=== PATIENT | male | born 1985 | race Caucasian/White ===

== ENCOUNTER 2022-03-03 10:47 | Outpatient (CLI) | payer BC, SELFPAY | END 2022-03-03 10:48 | disposition home or self-care (01) | LOC: AMB 03-17 15:10 | PROVIDERS: PCP Family Medicine; Visit Provider Family Medicine | DX: R41.82 Altered mental status, unspecified (principal); S49.91XA Unspecified injury of right shoulder and upper arm, initial encounter; W18.30XA Fall on same level, unspecified, initial encounter; Y92.003 Bedroom of unspecified non-institutional (private) residence as the place of occurrence of the external cause | CPT/HCPCS: A0425; A0427 ==

== ENCOUNTER 2022-03-03 11:16 | Emergency (ER) | payer BC, SELFPAY ==
[2022-03-03 11:31] VITALS: BP 129/91; PULSE 101; RESP 16; TEMP 36.6; O2SAT 94; BMI 25.9
--- NOTE | 2022-03-03 11:34 | ED.GENADULT ---
HPI - General Adult General Time Seen by Provider: 11:34 Date Seen: 03/03/22 Chief complaint: Syncope/Fainted Stated complaint: Syncope Time Seen by Provider: 03/03/22 11:34 Source: patient and RN notes reviewed Mode of arrival: EMS Limitations: no limitations History of Present Illness HPI narrative: Arnaldo is a 36-year-old male brought in by EMS for presumed episode of syncope at home. He was quite tired and he you put their son down for a nap at 9:00 a.m.. The son is reportedly a poor sleeper and Arnaldo had been up with him since about 530 this morning. He notes extensive stress at work, did cause him a panic attack that lasted longer this morning when talking to his . He has lots of work that is coming up and deadlines in obligations. Russ remembers putting his son the bed, going to lay in his bed and curling up. He felt a big chilled over room and reportedly went to sleep. That is the last thing he remembered this morning. At about 9:40 a.m., his heard a loud thud. She thought maybe it was the dog jumping out of the bed but the dog was in the room with her. Arnaldo then made his way down the stairs, he looked flushed and sweaty, was not walking straight. He was out of it. She was asking him what was wrong and if he was okay and he just kept repeating what white. She then called 911. She did note that she found his phone in the bed later that she knew he was in the bed. He remembers EMS being there and many people being in the house. Events prior to that from when he got out of bed or possibly fell out of bed to making it downstairs where his were are not remembered by him. There was some blood in she did note that he bit the tip of his tongue. He has not been ill prior to this, no fevers chills. He denies any headache, no visual changes, no headache. No neck pain. Has not had any cough or cold symptoms. Really the only thing that has been plaguing him is work stress. EMS did place an IV and reportedly did give him Ativan. He is feeling tired which certainly could be from the Ativan. He has no history of seizure. In review of our records, he was in the ER in 2013 for feeling of twitching in his chest., these were diagnosed as heart palpitations, he had significant early repolarization of his EKG. This seems to be consistent with what were seen his EKG today as well. Sleep deprivation and stress have been significant for him. Related Data Home Medications Medication Instructions Recorded Confirmed No Known Home Medications 03/03/22 03/03/22 Allergies Allergy/AdvReac Type Severity Reaction Status Date / Time cefaclor [From Ceclor] Allergy Unknown Verified 03/03/22 11:40 Review of Systems Status of ROS: Reports: 10 or more systems reviewed and unremarkable except as noted in History and below PFSH PFS Social History Smoking Status: Unknown if ever smoked Do you use any of these nicotine containing products: None How often do you have a drink containing alcohol: 2-3 times a week AUDIT-C Alcohol total score: 3 Non-prescribed substance use: denies use Exam Const: Vital Signs, click to edit/add: Vital Signs - 24 hr 03/03/22 11:31 03/03/22 14:28 03/03/22 14:29 Temperature 97.8 F Pulse Rate [Left P ulse Oximeter] 101 H 105 H Pulse Rate [orthos tatic lying Left P ulse Oximeter] 90 Respiratory Rate 16 18 Blood Pressure [Le ft Upper Arm] 129/91 H 131/92 H Blood Pressure [or thostatic lying Le ft Arm] 129/81 Blood Pressure [or thostatic sitting Left Arm] Blood Pressure [or thostatic standing Left Arm] Pulse Oximetry 94 98 Oxygen Delivery Me thod Room Air Room Air 03/03/22 14:28 03/03/22 14:29 Temperature Pulse Rate [Left P ulse Oximeter] Pulse Rate [orthos tatic lying Left P ulse Oximeter] 105 H 135 H Respiratory Rate Blood Pressure [Le ft Upper Arm] Blood Pressure [or thostatic lying Le ft Arm] Blood Pressure [or thostatic sitting Left Arm] 131/92 H Blood Pressure [or thostatic standing Left Arm] 128/97 H Pulse Oximetry Oxygen Delivery Me thod Documenting provider has reviewed patient's vital signs: yes Common normals: no apparent distress, oriented x3, no limitations, healthy appearing and well nourished General appearance: cooperative, comfortable, well kempt and other (Tired, easily arousable though) Nutritional appearance: thin HENMT: Common normals: normocephalic, head/scalp atraumatic, hearing grossly normal bilaterally, external ears normal, EAC's normal, external nose normal, nasal mucous membranes and turbinates normal, moist oral mucous membranes, dentition normal and gingiva normal Head and scalp: normocephalic and atraumatic Nose: external nose normal and nasal mucous membranes and turbinates normal External ear: external ears normal External auditory canal: EAC's normal Tympanic membrane: unable to visualize TM (Bilateral ceruminosis) Other: On each side of the tongue where it would be juxtaposed to the posterior molars, there is a little ecchymosis, no active bleeding. The tip of his tongue actually has some bite alonso in ecchymosis but no active bleeding at this time. Eye: Common normals: PERRL, EOMs intact bilaterally, conjunctivae normal, no scleral icterus and normal visual narayan by confrontation Conjunctiva: conjunctiva(e) normal Pupil: PERRL Neck & C-Spine: Common normals: full ROM, no lymphadenopathy, supple, no meningeal signs, no JVD and thyroid normal Thyroid: thyroid normal Resp: Common normals: normal respiratory effort, no retractions, no use of accessory muscles and clear to auscultation bilaterally Auscultation: clear to auscultation bilaterally Cardio: Common normals: no JVD, regular rate, regular rhythm, S1 normal heart sound, S2 normal heart sound, no gallops, no clicks, no murmurs and no rub Rate: regular rate Rhythm: regular rhythm Heart sounds: S1 normal and S2 normal GI: Common normals: Normal to inspection, nondistended, normoactive bowel sounds present, soft to palpation, non-tender, no hepatosplenomegaly, no masses and no bruits Palpation: soft and no hepatosplenomegaly Extremity: Common normals: normal to inspection, full ROM, normal capillary refill, no joint enlargement, no clubbing, cyanosis or edema, no calf tenderness and no pedal edema Neuro: [place] Coma Scale: document GCS findings [place] coma scale eye opening: Spontaneous (4) [place] coma scale verbal response: Orientated (5) [place] coma scale motor response: Obey commands (6) [place] coma scale total score: 15 Common normals: oriented x3, CN's II-XII intact bilaterally, moves all extremities, no focal motor deficits and no sensory deficits noted Meningeal signs: no meningeal signs Coordination/balance: [id number] test normal Motor exam: strength 5/5 throughout, no pronator drift, no tremor noted, no asterixis, no fasciculations, muscle tone normal throughout and no movement abnormalities noted Coordination: [id number] test normal Psych: Appearance: well kempt Course Course Hospital Course: Reviewed with patient and his that I do have concerns that this could represent seizure activity. It is possible he could have some abnormal sleep issue developing as well. Regardless, I discussed with them that we would likely be talking to Neurology. Patient at this time is hemodynamically stable. We will look at arrhythmias and cardiac pathology as well. His EKG has diffuse elevation and has historically had this with early repolarization. Have discussed with them that they will likely be here minimum of 3 hours so we can do a couple sets of cardiac enzymes. I will be ordering a noncontrast head CT as well. Consultations Consultation #1: Spoke with Dr. Sutton from [place] [facility]. She agrees that this sounds like a seizure. Given that this is a first-time seizure at this point, no Lodine of anti epileptic medication required. They will follow up with him outpatient for an MRI and EEG. He is not to drive, is to follow standard seizure precautions. If recurrent seizure activity in the interim, is to return for emergent medical evaluation. Time: 15:13 Vital Signs Vital signs: Initial Vital Signs Temperature 97.8 F 03/03/22 11:31 Temperature Source Temporal Artery Scan 03/03/22 11:31 Pulse Rate 101 H 03/03/22 11:31 Pulse Rhythm 03/03/22 11:31 Respiratory Rate 16 03/03/22 11:31 Blood Pressure 129/91 H 03/03/22 11:31 Blood Pressure Mean 103 03/03/22 11:31 Blood Pressure Position Sitting 03/03/22 11:31 Pulse Oximetry 94 03/03/22 11:31 Oxygen Delivery Method 03/03/22 11:31 Vital Signs Temperature 97.8 F 03/03/22 11:31 Pulse Rate 101 H 03/03/22 11:31 Respiratory Rate 16 03/03/22 11:31 Blood Pressure 129/91 H 03/03/22 11:31 Pulse Oximetry 94 03/03/22 11:31 Oxygen Delivery Method 03/03/22 11:31 Temperature 97.8 F 03/03/22 11:31 Pulse Rate 135 H 03/03/22 14:29 Respiratory Rate 18 03/03/22 14:29 Blood Pressure 128/97 H 03/03/22 14:29 Pulse Oximetry 98 03/03/22 14:29 Oxygen Delivery Method 03/03/22 14:29 Medical Decision Making Lab Data Labs: Lab Results 03/03/22 03/03/22 03/03/22 Range/Units 01:54 01:54 01:54 WBC (4.50-11.00) K/uL RBC (4.30-5.90) m/uL Hgb (13.5-17.5) gm/dL Hct (37.0-53.0) % MCV (80-100) fL MCH (26-34) pg MCHC (32-36) gm/dL RDW Coeff of Sherita (11.5-15.5) % Plt Count (140-440) K/uL Neut % (Auto) (42.0-72.0) % Lymph % (Auto) (20-44) % Sandoval % (Auto) (0.0-11.0) % Eos % (Auto) (0.0-7.0) % Baso % (Auto) (0.0-3.0) % Neut # (Auto) (1.7-7.0) K/uL Lymph # (Auto) (0.90-2.90) K/uL Sandoval # (Auto) (0.00-0.90) K/UL Eos # (Auto) (0.00-0.50) K/uL Baso # (Auto) (0.00-0.30) K/uL Abs Immat Gran (auto) (0.00-0.30) K/uL ESR (2-15) mm/hr Sodium 137 (135-149) mmol/L Potassium 4.1 (3.6-5.1) mmol/L Chloride 104 (96-114) mmol/L Carbon Dioxide 27 (20-32) mmol/L BUN 12 (5-24) mg/dL Creatinine 0.9 (0.5-1.5) mg/dL Estimated Creat Clear 122.01 Estimated GFR 114 ml/min Glucose 112 (60-115) mg/dL Lactate 2.2 H (0.5-1.9) mmol/L Calcium 9.1 (8.4-10.6) mg/dL Total Bilirubin 0.3 (0.1-1.5) mg/dL AST 37 H (12-35) U/L ALT 28 (4-50) U/L Alkaline Phosphatase 65 (40-150) U/L C-Reactive Protein < 0.5 L (0.5-1.0) mg/dL NT-Pro-B Natriuret Pep 13 (0-125) PG/mL Total Protein 7.8 (6.0-8.3) g/dL Albumin 4.7 (3.3-5.0) g/dL Ethyl Alcohol < 0.01 L (0.01-0.03) % SARS-CoV-2 (PCR) (Negative) POC Troponin I (0.01-0.04) ng/ml 03/03/22 03/03/22 03/03/22 Range/Units 11:52 11:52 12:35 WBC 17.51 H (4.50-11.00) K/uL RBC 5.29 (4.30-5.90) m/uL Hgb 15.5 (13.5-17.5) gm/dL Hct 44.9 (37.0-53.0) % MCV 85 (80-100) fL MCH 29 (26-34) pg MCHC 35 (32-36) gm/dL RDW Coeff of Sherita 11.9 (11.5-15.5) % Plt Count 298 (140-440) K/uL Neut % (Auto) 84.3 H (42.0-72.0) % Lymph % (Auto) 9.4 L (20-44) % Sandoval % (Auto) 5.0 (0.0-11.0) % Eos % (Auto) 0.6 (0.0-7.0) % Baso % (Auto) 0.1 (0.0-3.0) % Neut # (Auto) 14.80 H (1.7-7.0) K/uL Lymph # (Auto) 1.60 (0.90-2.90) K/uL Sandoval # (Auto) 0.90 (0.00-0.90) K/UL Eos # (Auto) 0.10 (0.00-0.50) K/uL Baso # (Auto) 0.00 (0.00-0.30) K/uL Abs Immat Gran (auto) 0.10 (0.00-0.30) K/uL ESR <2 L (2-15) mm/hr Sodium (135-149) mmol/L Potassium (3.6-5.1) mmol/L Chloride (96-114) mmol/L Carbon Dioxide (20-32) mmol/L BUN (5-24) mg/dL Creatinine (0.5-1.5) mg/dL Estimated Creat Clear Estimated GFR ml/min Glucose (60-115) mg/dL Lactate (0.5-1.9) mmol/L Calcium (8.4-10.6) mg/dL Total Bilirubin (0.1-1.5) mg/dL AST (12-35) U/L ALT (4-50) U/L Alkaline Phosphatase (40-150) U/L C-Reactive Protein (0.5-1.0) mg/dL NT-Pro-B Natriuret Pep (0-125) PG/mL Total Protein (6.0-8.3) g/dL Albumin (3.3-5.0) g/dL Ethyl Alcohol (0.01-0.03) % SARS-CoV-2 (PCR) Negative SARS-CoV-2 (Negative) POC Troponin I (0.01-0.04) ng/ml 03/03/22 03/03/22 Range/Units 12:35 15:35 WBC (4.50-11.00) K/uL RBC (4.30-5.90) m/uL Hgb (13.5-17.5) gm/dL Hct (37.0-53.0) % MCV (80-100) fL MCH (26-34) pg MCHC (32-36) gm/dL RDW Coeff of Sherita (11.5-15.5) % Plt Count (140-440) K/uL Neut % (Auto) (42.0-72.0) % Lymph % (Auto) (20-44) % Sandoval % (Auto) (0.0-11.0) % Eos % (Auto) (0.0-7.0) % Baso % (Auto) (0.0-3.0) % Neut # (Auto) (1.7-7.0) K/uL Lymph # (Auto) (0.90-2.90) K/uL Sandoval # (Auto) (0.00-0.90) K/UL Eos # (Auto) (0.00-0.50) K/uL Baso # (Auto) (0.00-0.30) K/uL Abs Immat Gran (auto) (0.00-0.30) K/uL ESR (2-15) mm/hr Sodium (135-149) mmol/L Potassium (3.6-5.1) mmol/L Chloride (96-114) mmol/L Carbon Dioxide (20-32) mmol/L BUN (5-24) mg/dL Creatinine (0.5-1.5) mg/dL Estimated Creat Clear Estimated GFR ml/min Glucose (60-115) mg/dL Lactate (0.5-1.9) mmol/L Calcium (8.4-10.6) mg/dL Total Bilirubin (0.1-1.5) mg/dL AST (12-35) U/L ALT (4-50) U/L Alkaline Phosphatase (40-150) U/L C-Reactive Protein (0.5-1.0) mg/dL NT-Pro-B Natriuret Pep (0-125) PG/mL Total Protein (6.0-8.3) g/dL Albumin (3.3-5.0) g/dL Ethyl Alcohol (0.01-0.03) % SARS-CoV-2 (PCR) (Negative) POC Troponin I 0.00 L 0.00 L (0.01-0.04) ng/ml Imaging Data CT scan - head: Attestation: I have reviewed the pertinent imaging results. Radiologist's impression: Patient: ARNALDO ARGUETA Facility:?[facility] Patient ID:?[id number] Site Patient ID:?[id number]. Site :?[id number] Study:?CT Head W/O-03/03/2022 12:25:10 PM Ordering Physician:Lilia Paul Final Report: Indication: sycopal episode, ?seizure Technique: CT of the head without contrast. Coronal and sagittal reformats. Bone and soft tissue windows. Comparison: No prior studies available for comparison at this institution. Findings: No acute intracranial hemorrhage or extra-axial collection. No evidence of acute cortical infarction. No mass effect or midline shift. Normal cerebral volume. The ventricles are normal in size, shape and contour. There is normal alas and white matter differentiation. The orbital contents are normal. No calvarial fractures. No lytic or sclerotic osseous lesions within the calvarium or skull base. Scalp and other imaged soft tissue structures are normal. Mastoid air cells are clear. Paranasal sinuses are well aerated. Moderate mucosal thickening in the left maxillary sinus. Mild secretions in the right sphenoid sinus. Leftward deviation of the septum. Impression: No acute intracranial abnormality. Please note that all CT scans at this facility use dose modulation, iterative reconstruction, and/or weight-based dosing when appropriate to reduce radiation dose to as low as reasonably achievable. Dictated by Shyam Calero MD @ 03/03/2022 12:54:08 PM (Electronic Signature) ECG Data Attestation: I personally reviewed and interpreted this ECG as follows: (Sinus rhythm, 90 beats per minute. Has ST segment elevation diffusely in the inferior and the anterior precordial leads V2 through V6. Compared to old EKGs from 2014. Followup EKG timed 1528 showing sinus rhythm, 90 beats per minute, normal EKG. Can still see early repolarization.) Prior ECG tracings: available for review Critical Care Time Critical Care Time Critical Care Time: No Discharge Plan Discharge Clinical Impression: Episode of syncope Patient Disposition: Home, Self-Care Condition: Stable Instructions: Syncope (ED), New-Onset Seizure in Adults (ED) Additional Instructions: Unfortunately, the clinical picture seems to be that this was likely a seizure. This is not definitively confirmed but is highly suspected. Therefore, you are not to drive until further clearance done by Neurology. You should contact [place] [facility], spoke with Dr. Sutton from there, phone number is [phone] to get scheduled for followup. They will likely order a brain MRI and EEG as well as a consultation with you. Should you have any recurrent seizure type activity or concerns for seizure, need to return to the ER for further evaluation and we would consider initiating medication treatment. No swimming or tub baths with about another adults present, seizures can happen while swimming or if in a tub or hot tub causing drowning. Prescriptions: No Action No Known Home Medications Follow Up/Referrals: Mat Cano MD [Staff Physician] - Stand Alone Forms: [employer] Info Instructions
--- NOTE | 2022-03-03 11:51 | CRLHL7_ITS ---
For Patients: As a result of the Century Cures Act, medical imaging exams and procedure reports are released immediately into your electronic medical record. You may view this report before your referring provider. If you have questions, please contact your health care provider. Indication: sycopal episode, ?seizure Technique: CT of the head without contrast. Coronal and sagittal reformats. Bone and soft tissue windows. Comparison: No prior studies available for comparison at this institution. Findings: No acute intracranial hemorrhage or extra-axial collection. No evidence of acute cortical infarction. No mass effect or midline shift. Normal cerebral volume. The ventricles are normal in size, shape and contour. There is normal alas and white matter differentiation. The orbital contents are normal. No calvarial fractures. No lytic or sclerotic osseous lesions within the calvarium or skull base. Scalp and other imaged soft tissue structures are normal. Mastoid air cells are clear. Paranasal sinuses are well aerated. Moderate mucosal thickening in the left maxillary sinus. Mild secretions in the right sphenoid sinus. Leftward deviation of the septum. Impression: No acute intracranial abnormality. Please note that all CT scans at this facility use dose modulation, iterative reconstruction, and/or weight-based dosing when appropriate to reduce radiation dose to as low as reasonably achievable. Dictated by Shyam Calero MD @ 03/03/2022 12:54:08 PM (Electronically Signed)
[2022-03-03 12:46] LABS: Lactate* 2.2 mmol/L (0.5-1.9)
[2022-03-03 12:48] LABS: Basophils Percent Auto 0.1 % (0.0-3.0); Eosinophils Percent Auto 0.6 % (0.0-7.0); Hematocrit 44.9 % (37.0-53.0); Hemoglobin* 15.5 gm/dL (13.5-17.5); Lymphocytes Percent Auto 9.4 % (20-44); Mean Corpuscular HGB Conc 35 gm/dL (32-36); Mean Corpuscular Hemoglobin 29 pg (26-34); Mean Corpuscular Volume 85 fL (80-100); Neutrophils Percent Auto 84.3 % (42.0-72.0); Platelet Count* 298 K/uL (140-440); RDW Coefficient of Variation % 11.9 % (11.5-15.5); Red Blood Count 5.29 m/uL (4.30-5.90); White Blood Count* 17.51 K/uL (4.50-11.00)
[2022-03-03 12:54] LABS: Slide Review Reflex No
[2022-03-03 13:23] LABS: SARS PCR* Negative SARS-CoV-2 (Negative)
[2022-03-03 13:24] LABS: Albumin* 4.7 g/dL (3.3-5.0); Chloride* 104 mmol/L (96-114); Sodium* 137 mmol/L (135-149)
[2022-03-03 13:25] LABS: Potassium* 4.1 mmol/L (3.6-5.1)
[2022-03-03 13:27] LABS: Bilirubin Total* 0.3 mg/dL (0.1-1.5); Carbon Dioxide* 27 mmol/L (20-32); Creatinine* 0.9 mg/dL (0.5-1.5); Est. Creatinine Clearance* 122.01; Estimated Glomerular Filt Rate 114 ml/min
[2022-03-03 13:28] LABS: Alanine Aminotransferase* 28 U/L (4-50); Alkaline Phosphatase* 65 U/L (40-150); Aspartate Amino Transferase* 37 U/L (12-35); Blood Urea Nitrogen* 12 mg/dL (5-24); Calcium* 9.1 mg/dL (8.4-10.6); Glucose* 112 mg/dL (60-115); Total Protein* 7.8 g/dL (6.0-8.3)
[2022-03-03 13:34] LABS: C Reactive Protein* < 0.5 mg/dL (0.5-1.0); Ethanol* < 0.01 % (0.01-0.03)
[2022-03-03 13:35] LABS: Erythrocyte SedimentationRate* <2 mm/hr (2-15)
[2022-03-03 13:36] LABS: NT Pro B Type NatriureticPept* 13 PG/mL (0-125)
[2022-03-03 14:28] VITALS: BP 129/81; BP 131/92; PULSE 105; PULSE 90
[2022-03-03 14:29] VITALS: BP 128/97; BP 131/92; PULSE 105; PULSE 135; RESP 18; O2SAT 98
[2022-03-03] MEDS: 0.9 % SODIUM CHLORIDE 1000 ml 1,000 ML IV (14:48)
--- NOTE | 2022-03-03 14:54 | ED.NURSE ---
paged out Neuro for patient consult.
[2022-03-03 15:00] VITALS: BP 138/84; PULSE 99; RESP 18; O2SAT 98
== END 2022-03-03 16:23 | disposition home or self-care (01) ==
PROVIDERS: Emergency Provider Family Medicine; PCP Family Medicine
DX: R55 Syncope and collapse (principal)
CPT/HCPCS: 36415; 70450; 80053; 82077; 83605; 83880; 84484; 85025; 85651; 86140; 87635; 93005; 99284; 99285; J7030

== ENCOUNTER 2022-03-31 04:08 | Outpatient (CLI) | payer BC, SELFPAY | END 2022-03-31 04:09 | disposition home or self-care (01) | PROVIDERS: PCP Family Medicine; Visit Provider Family Medicine | DX: R56.9 Unspecified convulsions (principal); R41.82 Altered mental status, unspecified | CPT/HCPCS: A0425; A0427 ==

== ENCOUNTER 2022-03-31 04:40 | Emergency (ER) | payer BC, SELFPAY ==
[2022-03-31] VITALS (13 sets, daily range): BP systolic 113–126; BP diastolic 76–92; PULSE 66–92; RESP 14–16; TEMP 36.4; O2SAT 79–99
--- NOTE | 2022-03-31 04:35 | ED.GENADULT ---
HPI - General Adult General Time Seen by Provider: 04:35 Date Seen: 03/31/22 Chief complaint: Seizure Stated complaint: Seizure Source: patient and EMS Mode of arrival: ambulatory History of Present Illness HPI narrative: 37-year-old male brought in by EMS for altered mentation, possible seizure. Per EMS, spouse called EMS when patient had seizure. Patient does not remember much. He has no complaints. Admits to drinking 1 glass of whiskey last night. Thinks he may have had 1 seizure in the past. Otherwise usual state of health. Patient and spouse were in bed, woke up to moaning and patient having full body shaking. Lasted about 2 minutes, patient was confused after that. Last episode lots of stress and poor sleep. Today, patient back from 3 week work trip. Related Data Previous Rx's Medication Instructions Recorded levetiracetam 500 mg tablet 500 mg PO BID #60 tabs 03/31/22 (Keppra) Allergies Allergy/AdvReac Type Severity Reaction Status Date / Time cefaclor [From [facility]] Allergy Unknown Verified 03/03/22 11:40 Review of Systems Status of ROS: Reports: 10 or more systems reviewed and unremarkable except as noted in History and below PFSH PFSH Social History Smoking Status: Light tobacco smoker What tobacco products do you use: cigars Do you use any of these nicotine containing products: None Second hand tobacco smoke exposure: No How often do you have a drink containing alcohol: 2-3 times a week AUDIT-C Alcohol total score: 3 Non-prescribed substance use: denies use service: No Exam Narrative: Exam Narrative: General: Well-developed and well-nourished, no acute distress Head: Atraumatic and normocephalic Eyes: Pupils are equal reactive, extraocular motions intact, conjunctiva clear ENT: External nose and ears are normal, posterior pharynx without erythema or exudate, abrasion on the tip of the tongue Neck: No midline cervical tenderness, full spontaneous range of motion the neck, trachea midline, no adenopathy Heart: Regular rate and rhythm no murmurs or thrills Lungs: Clear to auscultation bilaterally without wheezes or crackles Abdomen: Soft, nontender, nondistended with active bowel sounds Musculoskeletal: No tenderness, deformity, or edema Neurologic: Awake, alert, and oriented x2, no gross focal neurologic deficits, cranial nerves intact as tested Psych: Mood and affect are appropriate Skin: No rashes Const: Vital Signs, click to edit/add: Vital Signs - 24 hr 03/31/22 04:51 03/31/22 05:00 Temperature 97.5 F L Pulse Rate [Left P ulse Oximeter] 88 80 Respiratory Rate 16 14 Blood Pressure [Le ft Upper Arm] 126/92 H 113/80 Pulse Oximetry 95 95 Oxygen Delivery Me thod Room Air Room Air Course Course Hospital Course: Patient seen and examined on EMS arrival, prior records reviewed. Differential diagnosis includes but not limited to ill mass, intracranial hemorrhage, electrolyte disturbance, alcohol withdrawal, medication reaction, drug use, seizure disorder. Patient presents with reported seizure, on initial exam here is little confused and possibly postictal. Abrasion of the tip of the tongue, no other acute findings on exam. Moves all extremities and no focal neurologic deficits. Oriented x2. Labs and head CT ordered. Reevaluation(s) Reevaluation #1: Labs reassuring other than a slightly low bicarb which is expected, AST and ALT are slightly elevated. CT scan personally of demonstrate any acute findings. Will discuss with Neurology. Time: 05:57 Reevaluation #2: Discussed with Dr. Banks, neurology who recommends starting Keppra see department and plan to discharge. Further interview with patient, he no red sleep depravation over the last couple of weeks only has been working in which may be the trigger for his seizure. Time: 06:15 Vital Signs Vital signs: Initial Vital Signs Temperature 97.5 F L 03/31/22 04:51 Temperature Source Temporal Artery Scan 03/31/22 04:51 Pulse Rate 88 03/31/22 04:51 Pulse Rhythm 03/31/22 04:51 Respiratory Rate 16 03/31/22 04:51 Blood Pressure 126/92 H 03/31/22 04:51 Blood Pressure Mean 103 03/31/22 04:51 Blood Pressure Position Semi-Fowlers 03/31/22 04:51 Pulse Oximetry 95 03/31/22 04:51 Oxygen Delivery Method 03/31/22 04:51 Vital Signs Temperature 97.5 F L 03/31/22 04:51 Pulse Rate 88 03/31/22 04:51 Respiratory Rate 16 03/31/22 04:51 Blood Pressure 126/92 H 03/31/22 04:51 Pulse Oximetry 95 03/31/22 04:51 Oxygen Delivery Method 03/31/22 04:51 Temperature 97.5 F L 03/31/22 04:51 Pulse Rate 80 03/31/22 05:00 Respiratory Rate 14 03/31/22 05:00 Blood Pressure 113/80 03/31/22 05:00 Pulse Oximetry 95 03/31/22 05:00 Oxygen Delivery Method 03/31/22 05:00 Medical Decision Making Medical Records Medical records reviewed: Yes I reviewed the patient's medical records Lab Data Lab results reviewed: Yes I reviewed the patient's lab results Labs: Lab Results 03/31/22 03/31/22 03/31/22 Range/Units 04:46 04:46 04:46 WBC 8.97 (4.50-11.00) K/uL RBC 5.20 (4.30-5.90) m/uL Hgb 15.2 (13.5-17.5) gm/dL Hct 45.4 (37.0-53.0) % MCV 87 (80-100) fL MCH 29 (26-34) pg MCHC 34 (32-36) gm/dL RDW Coeff of Sherita 12.4 (11.5-15.5) % Plt Count 314 (140-440) K/uL Neut % (Auto) 42.1 (42.0-72.0) % Lymph % (Auto) 43.0 (20-44) % Imperial % (Auto) 7.5 (0.0-11.0) % Eos % (Auto) 6.4 (0.0-7.0) % Baso % (Auto) 0.6 (0.0-3.0) % Neut # (Auto) 3.78 (1.7-7.0) K/uL Lymph # (Auto) 3.86 H (0.90-2.90) K/uL Imperial # (Auto) 0.70 (0.00-0.90) K/UL Eos # (Auto) 0.57 H (0.00-0.50) K/uL Baso # (Auto) 0.05 (0.00-0.30) K/uL Abs Immat Gran (auto) 0.04 (0.00-0.30) K/uL Sodium 140 (135-149) mmol/L Potassium 4.0 (3.6-5.1) mmol/L Chloride 107 (96-114) mmol/L Carbon Dioxide 17 L (20-32) mmol/L BUN 9 (5-24) mg/dL Creatinine 0.9 (0.5-1.5) mg/dL Estimated GFR 114 ml/min Glucose 129 H (60-115) mg/dL Calcium 9.2 (8.4-10.6) mg/dL Total Bilirubin 0.5 (0.1-1.5) mg/dL Direct Bilirubin 0.3 (0.0-0.5) mg/dL AST 45 H (12-35) U/L ALT 53 H (4-50) U/L Alkaline Phosphatase 96 (40-150) U/L Total Creatine Kinase 181 (54-186) U/L Total Protein 7.8 (6.0-8.3) g/dL Albumin 4.8 (3.3-5.0) g/dL Procalcitonin Cancelled Prolactin Baseline Urine Opiates Screen Negative (Negative) Ur Oxycodone Screen Negative (Negative) Urine Methadone Screen Negative (Negative) Ur Propoxyphene Screen Negative (Negative) Ur Barbiturates Screen Negative (Negative) U Tricyclic Antidepress Negative (Negative) Ur Phencyclidine Scrn Negative (Negative) Ur Amphetamines Screen Negative (Negative) U Methamphetamines Scrn Negative (Negative) U Benzodiazepines Scrn Negative (Negative) Urine Cocaine Screen Negative (Negative) U Marijuana (THC) Screen Negative (Negative) Ur Drug Screen Comment See Note Ethyl Alcohol < 0.01 L (0.01-0.03) % 03/31/22 03/31/22 Range/Units 04:46 04:46 WBC (4.50-11.00) K/uL RBC (4.30-5.90) m/uL Hgb (13.5-17.5) gm/dL Hct (37.0-53.0) % MCV (80-100) fL MCH (26-34) pg MCHC (32-36) gm/dL RDW Coeff of Sherita (11.5-15.5) % Plt Count (140-440) K/uL Neut % (Auto) (42.0-72.0) % Lymph % (Auto) (20-44) % Imperial % (Auto) (0.0-11.0) % Eos % (Auto) (0.0-7.0) % Baso % (Auto) (0.0-3.0) % Neut # (Auto) (1.7-7.0) K/uL Lymph # (Auto) (0.90-2.90) K/uL Imperial # (Auto) (0.00-0.90) K/UL Eos # (Auto) (0.00-0.50) K/uL Baso # (Auto) (0.00-0.30) K/uL Abs Immat Gran (auto) (0.00-0.30) K/uL Sodium (135-149) mmol/L Potassium (3.6-5.1) mmol/L Chloride (96-114) mmol/L Carbon Dioxide (20-32) mmol/L BUN (5-24) mg/dL Creatinine (0.5-1.5) mg/dL Estimated GFR ml/min Glucose (60-115) mg/dL Calcium (8.4-10.6) mg/dL Total Bilirubin (0.1-1.5) mg/dL Direct Bilirubin (0.0-0.5) mg/dL AST (12-35) U/L ALT (4-50) U/L Alkaline Phosphatase (40-150) U/L Total Creatine Kinase Cancelled (54-186) U/L Total Protein (6.0-8.3) g/dL Albumin (3.3-5.0) g/dL Procalcitonin Prolactin Baseline Cancelled Urine Opiates Screen (Negative) Ur Oxycodone Screen (Negative) Urine Methadone Screen (Negative) Ur Propoxyphene Screen (Negative) Ur Barbiturates Screen (Negative) U Tricyclic Antidepress (Negative) Ur Phencyclidine Scrn (Negative) Ur Amphetamines Screen (Negative) U Methamphetamines Scrn (Negative) U Benzodiazepines Scrn (Negative) Urine Cocaine Screen (Negative) U Marijuana (THC) Screen (Negative) Ur Drug Screen Comment Ethyl Alcohol (0.01-0.03) % Discharge Plan Discharge Clinical Impression: New onset seizure Patient Disposition: Home, Self-Care Condition: Stable Instructions: New-Onset Seizure in Adults (ED) Additional Instructions: Start Keppra this evening. Follow-up with neurology as scheduled. Activity Level: Other Activity Detail: No driving, no swimming, working at heights (ladders, etc) and no bike or motorcycle riding until you follow-up with neurology If seizure lasting greater than 5 minutes give diazepam 1 mL either between the teeth and cheeks, or rectally and call 911 Discharge Diet: Regular Prescriptions: New levetiracetam [Keppra] 500 mg tablet 500 mg PO BID Qty: 60 0RF Follow Up/Referrals: Sonam Luna MD [Primary Care Provider] - Stand Alone Forms: [employer] Info Instructions
--- NOTE | 2022-03-31 04:38 | CRLHL7_ITS ---
For Patients: As a result of the Century Cures Act, medical imaging exams and procedure reports are released immediately into your electronic medical record. You may view this report before your referring provider. If you have questions, please contact your health care provider. INDICATION: Altered mental status. TECHNIQUE: Noncontrast axial images. Sagittal coronal reconstructions per. COMPARISON: 03/03/2022. FINDINGS: No abnormal intracranial mass effect or midline shift, or evidence of acute intracranial hemorrhage. No areas of abnormal attenuation are seen within the brain. CSF spaces are age-appropriate. No acute osseous abnormality. Mild mucosal thickening is seen in the left ethmoid and right sphenoid sinuses. Mastoids are clear IMPRESSION: No CT evidence of an acute intracranial abnormality. Please note that all CT scans at this facility use dose modulation, iterative reconstruction, and/or weight-based dosing when appropriate to reduce radiation dose to as low as reasonably achievable. Dictated by Jhonny Luke MD @ 03/31/2022 6:09:17 AM (Electronically Signed)
[2022-03-31 04:54] LABS: Basophils Absolute Auto 0.05 K/uL (0.00-0.30); Basophils Percent Auto 0.6 % (0.0-3.0); Eosinophils Absolute Auto 0.57 K/uL (0.00-0.50); Eosinophils Percent Auto 6.4 % (0.0-7.0); Hematocrit 45.4 % (37.0-53.0); Hemoglobin* 15.2 gm/dL (13.5-17.5); Immature Granulocytes Abs Auto 0.04 K/uL (0.00-0.30); Lymphocytes Absolute Auto 3.86 K/uL (0.90-2.90); Mean Corpuscular HGB Conc 34 gm/dL (32-36); Mean Corpuscular Hemoglobin 29 pg (26-34); Mean Corpuscular Volume 87 fL (80-100); Monocytes Percent Auto 7.5 % (0.0-11.0); Neutrophils Absolute Auto 3.78 K/uL (1.7-7.0); Neutrophils Percent Auto 42.1 % (42.0-72.0); Platelet Count* 314 K/uL (140-440); RDW Coefficient of Variation % 12.4 % (11.5-15.5); White Blood Count* 8.97 K/uL (4.50-11.00)
--- NOTE | 2022-03-31 04:59 | ED.NURSE ---
pt has trauma to tongue after seizure, bleeding has stopped.
[2022-03-31 05:04] LABS: Slide Review Reflex No
[2022-03-31 05:07] LABS: Albumin* 4.8 g/dL (3.3-5.0)
[2022-03-31 05:08] LABS: Chloride* 107 mmol/L (96-114); Sodium* 140 mmol/L (135-149)
[2022-03-31 05:10] LABS: Bilirubin Direct* 0.3 mg/dL (0.0-0.5); Bilirubin Total* 0.5 mg/dL (0.1-1.5); Carbon Dioxide* 17 mmol/L (20-32); Creatinine* 0.9 mg/dL (0.5-1.5); Estimated Glomerular Filt Rate 114 ml/min; Total Protein* 7.8 g/dL (6.0-8.3)
[2022-03-31 05:11] LABS: Alanine Aminotransferase* 53 U/L (4-50); Alkaline Phosphatase* 96 U/L (40-150); Aspartate Amino Transferase* 45 U/L (12-35); Blood Urea Nitrogen* 9 mg/dL (5-24); Calcium* 9.2 mg/dL (8.4-10.6); Creatine Kinase* 181 U/L (54-186); Glucose* 129 mg/dL (60-115)
[2022-03-31 05:12] LABS: Amphetamine Screen Urine Negative (Negative); Barbiturate Screen Urine Negative (Negative); Benzodiazepines Screen Urine Negative (Negative); Cannabinoid Screen Urine Negative (Negative); Cocaine Screen Urine Negative (Negative); Methadone Screen Urine Negative (Negative); Methamphetamines Screen Urine Negative (Negative); Opiate Screen Urine Negative (Negative); Oxycodone Screen Urine Negative (Negative); Phencyclidine Screen Urine Negative (Negative); Tricyclic Antidepressant Urine Negative (Negative)
[2022-03-31 05:13] LABS: Ethanol* < 0.01 % (0.01-0.03)
--- NOTE | 2022-03-31 06:00 | ED.NURSE ---
called. additional information. per , seizure activity woke he up from sleep, seizure was very aggressive lasted about 2-3 minutes. pt [facility]. Pt is started complaining of back pain, between shoulder blades yesterday, would like that checked out.
[2022-04-02 13:26] LABS: Prolactin 43.8 ng/mL (2.1-17.7)
== END 2022-03-31 07:15 | disposition home or self-care (01) ==
PROVIDERS: Emergency Provider Family Medicine; PCP Family Medicine
DX: R56.9 Unspecified convulsions (principal)
CPT/HCPCS: 36415; 70450; 80048; 80076; 80306; 82077; 82550; 84145; 84146; 85025; 96365; 99285; J1953

== ENCOUNTER 2022-04-03 08:45 | Outpatient (RCR) | payer BC, SELFPAY | END 2023-02-13 23:59 | disposition home or self-care (01) | PROVIDERS: PCP Family Medicine; Visit Provider Family Medicine | DX: M25.511 Pain in right shoulder (principal); M25.512 Pain in left shoulder; Z51.89 Encounter for other specified aftercare | CPT/HCPCS: 97110; 97162 ==

== ENCOUNTER 2022-06-20 14:55 | Emergency (ER) | payer BC, SELFPAY ==
[2022-06-20 15:03] VITALS: BP 139/104; PULSE 84; RESP 18; TEMP 36.6; O2SAT 99; BMI 26.8
--- NOTE | 2022-06-20 15:05 | XR_ITS ---
Patient: ELLA ARGUETA Facility:?[facility] Patient ID:?[id number] Site Patient ID:?[id number]. Site :?1985 Study:?XRay-Extremity Right 2 VIEW-06/20/2022 3:30:57 PM Ordering Physician:Scarlett Howe Final Report: INDICATION: Inversion injury. Pain at the base of the 5th metatarsal. TECHNIQUE: Two views of the right foot COMPARISON: None FINDINGS: Bones: A nondisplaced fracture at the base of the 5th metatarsal. Joint spaces: Unremarkable. Soft tissues: Unremarkable. IMPRESSION: Nondisplaced fracture at the base of the 5th metatarsal. Dictated by Greg Pruitt MD @ 06/20/2022 3:57:28 PM Signed by:?Greg Pruitt MD @06/20/2022 3:57:28 PM (Electronic Signature)
--- NOTE | 2022-06-20 15:09 | ED_ITS ---
HPI - Extremity Injury (Lower) General Chief Complaint: Extremity Pain/Injury, Lower Stated Complaint: Foot Injury Time Seen by Provider: 06/20/22 15:05 History of Present Illness HPI Narrative: 37-year-old man presenting to the emergency department with injury to his right foot. He is able to hobble in. Just a little bit ago was in the garage with untied work boots and noting the steel toe, which locked his foot in the boot and just went over hard. He heard a pop and felt pain at the ?lump? on the outside of his foot. No other injuries sustained. Related Data Previous Rx's Medication Instructions Recorded levetiracetam 500 mg tablet 500 mg PO BID #60 tabs 03/31/22 (Keppra) Allergies Allergy/AdvReac Type Severity Reaction Status Date / Time cefaclor [From Ceclor] Allergy Unknown Verified 03/03/22 11:40 Review of Systems Status of ROS: Reports: 6 or more systems reviewed and unremarkable except as noted in History and below PFSH PFSH Social History Smoking Status: Light tobacco smoker What tobacco products do you use: cigars Do you use any of these nicotine containing products: None Second hand tobacco smoke exposure: No How often do you have a drink containing alcohol: 2-3 times a week AUDIT-C Alcohol total score: 3 Non-prescribed substance use: denies use service: No Exam Narrative: Exam Narrative: Pleasant. Uncomfortable appearing. As noted seems to be ambulating with an talgic gait favoring the right. Breathing easily. Skin is warm and dry. Examination of the right lower extremity shows moderate swelling at the base of the 5th metatarsal, tenderness here as well. No malleolar tenderness. No navicular tenderness. Comparison to the left foot is this fibular tendon insertion is certainly more swollen on the right versus the left. Const: Vital Signs, click to edit/add: Vital Signs - 24 hr 06/20/22 15:03 Temperature 97.9 F Pulse Rate [Right Pulse Oximeter] 84 Respiratory Rate 18 Blood Pressure [Ri ght Upper Arm] 139/104 H Pulse Oximetry 99 Oxygen Delivery Me thod Room Air Documenting provider has reviewed patient's vital signs: yes Course Vital Signs Vital signs: Initial Vital Signs Temperature 97.9 F 06/20/22 15:03 Temperature Source Temporal Artery Scan 06/20/22 15:03 Pulse Rate 84 06/20/22 15:03 Respiratory Rate 18 06/20/22 15:03 Blood Pressure 139/104 H 06/20/22 15:03 Blood Pressure Mean 115 06/20/22 15:03 Blood Pressure Position Sitting 06/20/22 15:03 Pulse Oximetry 99 06/20/22 15:03 Oxygen Delivery Method 06/20/22 15:03 Vital Signs Temperature 97.9 F 06/20/22 15:03 Pulse Rate 84 06/20/22 15:03 Respiratory Rate 18 06/20/22 15:03 Blood Pressure 139/104 H 06/20/22 15:03 Pulse Oximetry 99 06/20/22 15:03 Oxygen Delivery Method 06/20/22 15:03 Temperature 97.9 F 06/20/22 15:03 Pulse Rate 84 06/20/22 15:03 Respiratory Rate 18 06/20/22 15:03 Blood Pressure 139/104 H 06/20/22 15:03 Pulse Oximetry 99 06/20/22 15:03 Oxygen Delivery Method 06/20/22 15:03 MDM - Extremity Injury (Lower) MDM Narrative Medical decision making narrative: Given ice pack and Devan wrap. Taken to x-ray. Images pending. I review images and see a transverse nondisplaced fracture through the mid- styloid of the 5th metatarsal. Not quite a Fernandes fracture. Ordered for a Cam boot. Wearing this he is able to bear weight now much more comfortably. Would not seem that he needs crutches. Medical Records Attestation: I reviewed the patient's medical records. Discharge Plan Discharge Clinical Impression: Fracture of fifth metatarsal bone of right foot Patient Disposition: Home, Self-Care Condition: Stable Additional Instructions: A happier holidays to you. :) After the weekend I would call for an appointment in primary care or with Orthopedics at [phone] scheduling around 10-14 days from now for re-jeremy luation. Wear the Cam boot when up in walking about. You do not need crutches unless you are having significantly increased pain with ambulation. Ibuprofen, acetaminophen. I would ice this area with those screw top icing bags -- fill with ice and then water -- a couple of times daily over the next few days. Prescriptions: No Action levetiracetam [Keppra] 500 mg tablet 500 mg PO BID Qty: 60 0RF Follow Up/Referrals: Sonam Luna MD [Primary Care Provider] - Stand Alone Forms: [employer] Info Instructions
== END 2022-06-20 15:58 | disposition home or self-care (01) ==
PROVIDERS: Emergency Provider Family Medicine; PCP Family Medicine
DX: S92.504A Nondisplaced unspecified fracture of right lesser toe(s), initial encounter for closed fracture (principal)
CPT/HCPCS: 73620; 99283

== ENCOUNTER 2024-12-30 14:49 | Emergency (ER) | payer BC, SELFPAY ==
[2024-12-30] VITALS (11 sets, daily range): BP systolic 142–185; BP diastolic 94–112; PULSE 54–69; RESP 8–20; TEMP 36.1; O2SAT 99–100; BMI 27.1
--- OUTSIDE RECORDS SUMMARY | 2024-12-30 14:51 | XMS_ITS | Clinical Summary ---
Author Organization [facility] Address [address] [place] [address] Care Team Providers Care Enrollment Management Coordinator Name Role Phone Elsewhere, Pcp Primary Care Provider Unavailabl e Source Comments Patient records contain information from all sites at [facility]. For routine questions regarding patient records, call [phone] during business hours, M-F 8:00 AM - 5:00 PM Central Time. Record requests for emergency care only can be directed to [phone] at any time.[facility] Allergies Active Allergy Reactions Criticality Noted Date Comments Cefaclor Rash Medium 04/14/2018 WHEN YOUNGER Medications pyridoxine, vitamin B6, (B-6) 100 mg tablet Take 100 mg by mouth daily. 2 Active levETIRAcetam (KEPPRA) 750 mg tablet Take 1 tablet by mouth 2 (two) times a day. 2 Active diazePAM (VALIUM) 5 mg/mL concentrated solution Take 1 mL by mouth as directed. GIVE 1 ML ORAL OR RECTAL IF SEIZURE LASTING OVER 5 MINUTES 2 Active Social History Tobacco Use Types Packs/Day Years Used Date Smoking Tobacco: Never Smokeless Tobacco: Never Nutrition Answer Date Recorded Nutrition: EVOO Fat Source Unknown 09/29 Nutrition: Servings of Fruits/Vegetables per Day Not on file 09/29/2020 Dental Answer Date Recorded Dental: Regular Dentist Unknown 09/30/19 21 Sex and Gender Information Value Date Recorded Sex Assigned at Not on file Legal Sex Male 7:48 PM [employer] Gender Identity Not on file Sexual Orientation Not on file Plan of Treatment Upcoming Encounters Date Type Department Care Team (Latest Contact Info) Description 01/27/2025 9:30 AM CDT Clinical Communication Virtual Review in [place], [place] [address] [place] [address] 01/31/2025 8:40 AM CDT Office Visit Department of Dermatology in [place], [place] [address] [place] [address] Dennise Amaro M.D. [address] [place] [address] Health Maintenance Due Date Last Done Comments HIV Screening 1985 Hepatitis C Screening 1985 COVID-19 Vaccine ( season) 2024 05/06/2023, 04/18/2022, 06/23/2021, Additional history exists Depression Screening (Annual PHQ-2) 07/28/2024 Lipid (Cholesterol) Screening 10/20/2025 10/20/2020 DTaP,Tdap,and Td Vaccines (4 - Td or Tdap) 11/03/2033 11/04/2023, 11/11/2013, 01/25/1999 Hepatitis B Vaccines Completed 09/20/1999, 03/19/1999, 01/25/1999 Influenza Vaccine Completed 06/04/2024, , 04/18/2022, Additional history exists HPV Vaccines Aged Out No longer eligi ble based on patient's age to complete this topic IPV Vaccines Aged Out No longer eligi ble based on patient's age to complete this topic Pneumococcal vaccine (0-49 years) Aged Out No longer eligible based on patient's age to complete this topic Insurance [id number] [place] [id number] [facility] Care Teams Enrollment Management Coordinator Relationship Specialty Start Date End Date Elsewhere, Pcp PCP - General Internal Medicine 02/17/23
--- OUTSIDE RECORDS SUMMARY | 2024-12-30 14:51 | XMS_ITS | Data Portability ---
Author Organization [facility], [facility] Address [address] [place] [address] Assessment No assessment recorded. Plan of Treatment Reminders Order Date Submit Date Provider Last Modified By Organization Details Last Modified Time Details Appointments None record ed. Lab None record ed. Referral None record ed. Procedures None record ed. Surgeries None record ed. Imaging None record ed. Medication Orders None record ed. Patient TargetsNo targets recorded. Patient InstructionsNo instructions recorded. Reason for Referral None Reported. Medical Equipment None Reported. Allergies Allergen ID Allergen Name Allergen Category Reaction Reaction Severity Criticality Documentation Date Start Date Code Code System Note Provider Name and Address Organization Details Recorded Time [id number] Ceclor medicatio n Not available Not available Not available 08/01/2022 5 RxNorm Jordyn hernandez [facility] 3 10:28:54 Medications Name Sig Start Date Stop Date Status Note LastModified by Organization Details LastModified Time vitamin b-6 100 mg tabs active Not Available Not Available Not Available binaxnow cov kit home mayra 08/01 completed Not Available Not Available Not Available levetiracet am 500 mg tablet TAKE 1 TABLET BY MOUTH TWICE DAILY 08/01 completed Not Available Not Available Not Available amoxicillin 875 mg tablet 08/01 completed Not Available Not Available Not Available levetiracet am 750 mg tablet TAKE 1 TABLET BY MOUTH EVERY 12 HOURS active Not Available Not Available No t Available pyridoxine (vitamin B6) 100 mg tablet TAKE 1 TABLET BY MOUTH EVERY DAY 08/01 completed Not Available Not Available Not Available Diazepam Intensol 5 mg/mL oral concentrate GIVE 1 ML ORAL OR RECTAL IF SEIZURE LASTING OVER 5 MINUTES active Not Available Not Available No t Available Valtoco 20 mg/2 spray (10mg/0.1mL x2) nasal spray active Not Available Not Available Not Available BinaxNOW COVID-19 Ag Self Test kit TEST DIRECTED TODAY 08/01 completed Not Available Not Available Not Available Vitals Date Recorded Body height Body mass index (BMI) Body weight Provider Name and Address Organization Details Last Updated DateTime 08/01/2022 180.34 cm 26.4 kg/m2 47705.96 g Jordyn Doll [facility] 08/01/2022 10:28:08 Social History Question Answer Notes LastModified by Organizat ion Details LastModified Time Tobacco Smoking Status Never Smoker Jordyn hernandez [facility] 08/01/2022 10:30:19 What Was The Date Of Your Most Recent Tobacco Screening? 08/01/2022 szinnel Information not available 08/01/2022 Sex: Unknown Functional Status None recorded. Mental Status None recorded. Family History Relationship Description Onset Age of this Age Resolved Age Notes LastModified by Organization Details LastModified Time Father Family history of malignant neoplasm of brain szinnel Not available 2022 10:30:02 Medical History Condition Response Other Y High Blood Pressure N Kidney Stones N Lung Disease N Depression N GERD/Acid Reflux N Sexually Transmitted Infection N Cancer N High Cholesterol N Diabetes N Bleeding Disorder N Heart Disease N Past Encounters Encounter ID Performer Location Encounter Start Date Encounter Closed Date Diagnosis/Indication Diagnosis SNOMED-CT Code Diagnosis ICD10 Code Diagnosis Note [id number] Jesus Connell MD [facility] [address] [place] [address] 08/01/2022 10:21:20 08/05/2022 15:56:18 Counseling for sterilization done [id number] 9103 Z30.09 He has a normal exam and is a good candidate for a single site, no scalpel vasectomy. This is the most minimally invasive but still highly effective technique. We discussed potential complicati ons as well as the need for a post procedure semen analysis. Health Concerns Section Related Observation LastModified by Organization Detai ls LastModified Time None Recorded Concern Status LastModified by Organization Details LastModified Time None Recorded Advance Directives Directive None Recorded Payers Insurance Date Sequence Insurance Name Policy Number Policy Browning Covered Member ID Browning Member ID Guarantor Name 10/14/2022 1 [place] [id number] Arnaldo Hawthorne Jeff [id number] Arnaldo Aguilar Notes Date Note Type Note Provider Name and Address Organization Details Recorded Time 08/01/2022 text/html He's been considering a vasectomy for over a year. They currently use condoms for control. He does not have problems with recurrent scrotal pain. Jesus Connell MD [address] [place] [address],[address] [place] [address], [phone], [facility] 08/01/2022 11:02:23
--- OUTSIDE RECORDS SUMMARY | 2024-12-30 14:51 | XMS_ITS | Clinical Summary ---
Author Organization [facility] Address [address] [place] [address] Care Team Providers Care Butadiene Converter Utility Operator Name Role Phone Sonam Luna MD Primary Care Provider [phone] Allergies Active Allergy Reactions Criticality Noted Date Comments Cefaclor Rash 04/14/2018 Medications Vitamin B-6 100 mg tablet 04/09/2022 Active diazePAM IntensoL 5 mg/mL solution GIVE 1 ML ORAL OR RECTAL IF SEIZURE LASTING OVER 5 MINUTES 03/31/2022 Active diazePAM (Valtoco) 20 mg/2 spray (10mg/0.1mL x2) spry 1 spray (10mg) into each nostril 04/09/2022 Active levETIRAcetam (KEPPRA) 750 mg tabletIndicatio ns:Seizure disorder (HC) Take 1 Tablet (750 mg) by mouth two times daily. 4 Tablet 03/26/2024 Active Active Problems Problem Noted Date Diagnosed Date Seizure disorder 03/06/2023 Syncope and collapse 07/24/2018 Encounters Date Type Department Care Team Description 11/08/2024 Medical Messaging [facility] [address] [place] [address] Sonam Luna MD Neuro + Vaccines from Last 3 Months Immunizations Immunization Administration Dates Next Due COVID-19 vaccine (Pfizer-Bio NTech 30mcg/0.3mL) 12YO+ BIVALENT PF, MDV 04/18/2022 COVID-19 vaccine (Pfizer-Bio NTech 30mcg/0.3mL) PF MDV 06/23/2021,10/09/2020 Hepatitis B (Peds) 09/20/1999,03/19/1999, 999 INFLUENZA, IIV3 PF (AGE >= 6 MO) 06/04/2024 Influenza, IIV3 (Age >=3 years) 05/24/2021 Influenza, IIV4 05/06/2023,,05/17/2019,2017,05/21/2017,09/04/2016 MMR 01/25/1999 Td (Age >=7 Years) 01/25/1999 Tdap 11/04/2023,11/11/2013 Tuberculin (PPD) 01/01/2019 Family History Medical History Relation Name Comments Good Health Daughter Cancer Father Cancer Unknown Stroke Father hemiparesis Lung cancer Maternal Grandmother lung ca ncer Good Health Mother Lung cancer Other cancer (unknow) Good Health Paternal Aunt 1 Good Health Paternal Aunt 2 Lung cancer Paternal Grandfather cancer (unknow) Stroke Paternal Grandfather D 87 Cancer Paternal Uncle 1 cancer (unk now) Cancer Paternal Uncle 2 cancer (unk now) Cancer Paternal Uncle 3 cancer (unk now) Good Health Son Cancer-colon No Family History Cancer-prostate No Family History Diabetes No Family History Heart attack No Family History Relation Name Status Comments Daughter Alive Father Maternal Grandfather Step-Parent Maternal Grandmother Mother Alive Other Paternal Aunt 1 Alive Paternal Aunt 2 Alive Paternal Grandfather Paternal Grandmother Paternal Uncle 1 Paternal Uncle 2 Paternal Uncle 3 Sister Alive Son Alive Social History Tobacco Use Types Packs/Day Years Used Date Smoking Tobacco: Never Passive Smoke Exposure: Never Smokeless Tobacco: Never Tobacco Cessation:Counseling Given: Not Answered Alcohol Use Standard Drinks/Week Comments Not Currently 0 (1 standard drink = 0.6 oz pur e alcohol) random glass of wine PHQ-2 Answer Date Recorded PHQ-2 TOTAL SCORE 0 11/15/2022 Social Connections Answer Date Recorded Do you often feel lonely or isolated from those around you? 0 11/04/2023 Financial Resource Strain Answer Date R ecorded Difficulty of Paying Living Expenses 3 11/04/2023 Difficulty of Paying Living Expenses Not on file 11/04/2023 Food Insecurity Answer Date Recorded Do you worry your food will run out before you are able to buy more? 1 11/04/2023 Transportation Needs Answer Date Record ed Does lack of transportation keep you from medica l appointments? 1 11/04/2023 Does lack of transportation keep you from work, meetings or getting things that you need? 1 11/04/2023 Housing Stability Answer Date Recorded What is your housing situation today? 1 11/04/2023 Utilities Answer Date Recorded Do you have trouble paying f or utilities (for example, heat, electricity, water, phone)? 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 on file Not on file Not on file Obstetrics History Last Filed Vital Signs Vital Sign Reading Time Taken Comments Blood Pressure 129/88 11/04/2023 11:05 AM CDT Pulse 91 11/04/2023 11:05 AM CDT Temperature 36.8 C (98.3 F) 03/06/2023 10:01 AM CDT Respiratory Rate 16 03/06/2023 10:01 AM CDT Oxygen Saturation 98% 11/04/2023 11:05 AM CDT Inhaled Oxygen Concentration - - Weight 89.8 kg (198 lb) 11/04/2023 11:05 AM CDT Height 180.3 cm (5' 11) 03/06/2023 10:01 AM CDT Body Mass Index 27.62 03/06/2023 10:01 AM CDT Plan of Treatment Upcoming Encounters Date Type Department Care Team (Late st Contact Info) Description 12/31/2024 10:25 AM CDT Office Visit [facility] [address] [place] [address] Sonam Luna MD [address] [place] [address] Health Maintenance Due Date Last Done Comments HIV for age 15-65 2001 Hepatitis C screening for age 18-79 2004 Depression screening for age 12+ 11/16/2023 11/15/2022, 10/31/2022, 03/06/2022, Additional history exists BMI (ht and wt on same day) for age 18+ 03/06/2024 03/06/2023, 03/06/2022, 10/20/2020, Additional history exists COVID-19 vaccine series (2023- season) 2024 05/06/2023, 04/18/2022, 06/23/2021, Additional history exists Lipids for age 35-44 10/20/2025 10/20/2020 Tetanus booster 11/03/2033 11/04/2023, 10/26, 01/25/1999 Hepatitis B series for 19+ Completed 09/20, 03/19/1999, 01/25/1999 Tdap Completed 11/04/2023, 11/11/2013 Influenza Vaccine Completed 06/04/2024, , 04/18/2022, Additional history exists Pneumococcal series for age 6-49 Aged Out No longer eligible based on patient's age to complete this topic Procedures Procedure Name Priority Date/Time Associated Diagnosis Comments LIPID PANEL W REFLEX MEASURED LDL Routine 10/20/2020 8:26 AM CDT Lipid screening from Last 3 Months or Most Recently Relevant to Health Maintenance Results * (ABNORMAL) LIPID PANEL W REFLEX MEASURED LDL (10/20/2020 8:26 AM CDT) CHOLESTEROL,TOTAL 200(H) 100 - 199 mg/dL 10/20/2020 3:39 PM CDT [facility] TRIGLYCERIDES 98 <150 mg/dL 10/20/2020 3:39 PM CDT [facility] HDL CHOLESTEROL 57 >40 mg/dL 3:39 PM CDT [facility] NON-HDL CHOLESTEROL 143 <145 mg/dl 10/20/2020 3:39 PM CDT [facility] CHOL/HDL RATIO 3.51 <4.50 10/20/2020 3:39 PM CDT [facility] LDL CHOLESTEROL 123 <=130 mg/dL 10/20/2020 3:39 PM CDT [facility] PROVIDER ORDERED STATUS RANDOM 10/20/2020 3:39 PM CDT [facility] Blood BLOOD SPECIMEN / Unknown Venipuncture / Unknown 10/20/2020 8:26 AM CDT 10/20/2020 8:26 AM CDT us Sonam Luna MD CHEMISTRY Final Resul t [facility] [address] [place] [address], from Last 3 Months or Most Recently Relevant to Health Maintenance Insurance [employer] [place] [employer] [place] Care Teams Butadiene Converter Utility Operator Relationship Specialty Start Date End Date Sonam Luna MD [address] [place] [address] PCP - General Family Practice 10/20/20
--- NOTE | 2024-12-30 14:58 | CRLHL7_ITS ---
For Patients: As a result of the Century Cures Act, medical imaging exams and procedure reports are released immediately into your electronic medical record. You may view this report before your referring provider. If you have questions, please contact your health care provider. Indication: Chest pain Technique: Chest 2 views Comparison: None Findings/Impression: Cardiovascular and mediastinum: Heart size and vasculature are normal in caliber and appearance. Mediastinum is within normal limits. Lungs and pleural spaces: Lungs are clear. No sign of infiltrate or mass. No sign of pleural effusion. No pneumothorax. Bones and soft tissues: No significant findings. Dictated by Montez Curtis MD @ 12/30/2024 3:53:19 PM (Electronically Signed)
--- NOTE | 2024-12-30 15:15 | ED_ITS ---
HPI - Chest Pain General Date Seen: 12/30/24 Chief Complaint: Chest Pain Stated Complaint: chest pain Time Seen by Provider: 12/30/24 14:57 Source: patient and family Mode of arrival: ambulatory Limitations: no limitations History of Present Illness HPI narrative: 39-year-old gentleman presents here with chest pain, that is basically now resolved. This occurred just before he was going to take a run, lasted for approximately 2 minutes describes in his epigastric region behind his heart, no radiation to his chest back her shoulders, no associated diaphoresis, maybe a little bit of nausea with this and clearly some anxiety, as he says this is some sort of like previous stress test he has, he says that he has had a lot of stress on himself recently. As the of 2 children could be bone here shortly. Took 2 baby aspirin at home, denies any really previous history of this but there is a strong family history of strokes in his father with in his mid 60s, and heart disease in his 50s. He himself has had no history of smoking, hyperlipidemia, hypertension, or diabetes. Active, runs, exercises with no previous history of any exertional components. Denies any recent swelling of his legs, hemoptysis, syncope, or history of DVTs pulmonary emboli in either himself or family members. Did however recently she was film done [place], and said there was a long flight there and feels may have gotten dehydrated. Related Data Home Medications ?Medication ?Instructions ?Recorded ?Confirmed levetiracetam 750 mg tablet 750 mg PO BID 12/30/2412/19 Allergies Allergy/AdvReac Type Severity Reaction Status Date / Time cefaclor (From [facility]) Allergy Unknown Verified 03/03/22 11:40 Review of Systems Status of ROS Reports: 10 or more systems reviewed and unremarkable except as noted in History and below PFS PFS Social History Smoking Status: Light tobacco smoker What tobacco products do you use: cigars Do you use any of these nicotine containing products: None Second hand tobacco smoke exposure: No How often do you have a drink containing alcohol: 2-3 times a week AUDIT-C Alcohol total score: 3 Non-prescribed substance use: denies use service: No Exam Narrative Exam Narrative: Patient is seen in triage room as is very busy in all rules for full, pupils equal round reactive to light there is no scleral icterus redness TMs are normal oropharynx normal there is no adenopathy anterior posterior chains, chest is good air entry bilaterally no wheezing crackles noted heart sounds are normal chest is good air entry bilaterally no wheezing crackles no reproducible chest pain, heart sounds are normal his abdomen is otherwise soft there is no guarding no organomegaly good negative murmur Mujica sign, no CVA tenderness moves all extremities independently and well. Const Vital Signs, click to edit/add: Vital Signs - 24 hr 12/30/24 14:51 12/30/24 15:45 12/30/24 16:16 Temperature 96.9 F L Pulse Rate Pulse Rate [Pulse Oximeter] 69 54 L Respiratory Rate 16 16 Blood Pressure Blood Pressure [Right Upper Arm] 185/112 H 161/97 H Pulse Oximetry 100 99 100 Oxygen Delivery Method Room Air Room Air 12/30/24 16:26 12/30/24 16:30 12/30/24 16:45 Temperature Pulse Rate 65 67 Pulse Rate [Pulse Oximeter] Respiratory Rate 15 20 17 Blood Pressure Blood Pressure [Right Upper Arm] Pulse Oximetry 100 100 100 Oxygen Delivery Method 12/30/24 16:47 12/30/24 17:00 12/30/24 17:02 Temperature Pulse Rate 67 66 64 Pulse Rate [Pulse Oximeter] Respiratory Rate 14 14 8 L Blood Pressure 151/104 H 144/94 H Blood Pressure [Right Upper Arm] Pulse Oximetry 100 99 100 Oxygen Delivery Method Documenting provider has reviewed patient's vital signs: yes Course Course ED Course: Patient remained in sinus rhythm, from a rate of 60 down to approximately 49, mild sinus bradycardia as noted, I think this is related to this status as a runner. Vital Signs Vital signs: Initial Vital Signs Temperature 96.9 F L 12/30/24 14:51 Temperature Source Temporal Artery Scan 12/30/24 14:51 Pulse Rate 69 12/30/24 14:51 Respiratory Rate 16 12/30/24 14:51 Blood Pressure 185/112 H 12/30/24 14:51 Blood Pressure Mean 136 H 12/30/24 14:51 Blood Pressure Position Sitting 12/30/24 14:51 Pulse Oximetry 100 12/30/24 14:51 Oxygen Delivery Method Room Air 12/30/24 14:51 Vital Signs Temperature 96.9 F L 12/30/24 14:51 Pulse Rate 69 12/30/24 14:51 Respiratory Rate 16 12/30/24 14:51 Blood Pressure 185/112 H 12/30/24 14:51 Pulse Oximetry 100 12/30/24 14:51 Oxygen Delivery Method Room Air 12/30/24 14:51 Temperature 96.9 F L 12/30/24 14:51 Pulse Rate 64 12/30/24 17:02 Respiratory Rate 8 L 12/30/24 17:02 Blood Pressure 144/94 H 12/30/24 17:02 Pulse Oximetry 100 12/30/24 17:02 Oxygen Delivery Method Room Air 12/30/24 15:45 Medications Administered Medications: Discontinued Medications Generic Name Dose Route Start Last Admin Trade Name Freq PRN Reason Stop Dose Admin Sodium Chloride 1,000 mls @ 1,000 mls/hr 12/30/24 15:00 12/30/24 16:11 0.9 % Sodium Chloride 1000 Ml IV 12/30/24 15:59 Infused .Q1H KATHY Infusion MDM - Chest Pain MDM Narrative Medical decision making narrative: During the evaluation of this patient I considered multiple differential diagnosis is. The life-threatening differential diagnosis include coronary disease/TN, pulmonary embolism, pneumothorax, pneumonia, and aortic dissection. Other differential diagnosis included but were not limited to pericarditis, myocarditis, chest wall pain, GERD, esophageal rupture, rib fracture contusion, pleurisy, as well as other etiologies. Discussed with the patient, I do not see any evidence of myocardial damage, there is no evidence of pulmonary embolism, or any other severe issues multiple things can cause chest pain I suspect his maybe some esophageal spasm I do not think he had a panic attack, but I do think follow-up with primary care to discuss risk factors would be appropriate knee actually has a physical exam scheduled for tomorrow. Differential Diagnosis Differential diagnosis: Likely fracture of rib, pneumothorax, stable angina, unstable angina pectoris, atypical chest pain, st elevation myocardial infarction, costochondritis, chest pain and biliary colic Medical Records Data Attestation: I reviewed the patient's medical records. Lab Data Attestation: I reviewed the patient's lab results. Labs: Lab Results 12/30/24 12/30/24 12/30/24 Range/Units 14:59 15:10 16:41 WBC 8.38 (4.50-11.00) K/uL RBC 5.02 (4.30-5.90) m/uL Hgb 14.8 (13.5-17.5) gm/dL Hct 43.4 (37.0-53.0) % MCV 87 (80-100) fL MCH 30 (26-34) pg MCHC 34 (32-36) gm/dL RDW Coeff of Sherita 12.0 (11.5-15.5) % Plt Count 275 (140-440) K/uL Neut % (Auto) 51.5 (42.0-72.0) % Lymph % (Auto) 38.2 (20-44) % Porter % (Auto) 6.0 (0.0-11.0) % Eos % (Auto) 3.7 (0.0-7.0) % Baso % (Auto) 0.5 (0.0-3.0) % Neut # (Auto) 4.32 (1.7-7.0) K/uL Lymph # (Auto) 3.20 H (0.90-2.90) K/uL Porter # (Auto) 0.50 (0.00-0.90) K/UL Eos # (Auto) 0.31 (0.00-0.50) K/uL Baso # (Auto) 0.04 (0.00-0.30) K/uL Abs Immat Gran (auto) 0.01 (0.00-0.30) K/uL Imm/Tot Granulo (auto) 0.1 % INR 0.97 (0.91-1.10) APTT 26 (23-33) Seconds D-Dimer Quant (PE/DVT) 0.10 (0.00-0.50) ug/ml Sodium 138 (135-149) mmol/L Potassium 4.0 (3.6-5.1) mmol/L Chloride 104 (96-114) mmol/L Carbon Dioxide 27 (20-32) mmol/L Anion Gap 7 (7-15) mEq/L BUN 14 (5-24) mg/dL Creatinine 1.1 (0.5-1.5) mg/dL Estimated Creat Clear 96.98 Estimated GFR 88 ml/min Glucose 100 (60-115) mg/dL Calcium 9.4 (8.4-10.6) mg/dL Total Bilirubin 0.5 (0.1-1.5) mg/dL Direct Bilirubin 0.2 (0.0-0.5) mg/dL AST 32 (12-35) U/L ALT 26 (4-50) U/L Alkaline Phosphatase 54 (40-150) U/L NT-Pro-B Natriuret Pep < 20 (See Note) pg/mL Total Protein 7.5 (6.0-8.3) g/dL Albumin 4.8 (3.3-5.0) g/dL Lipase 179 (23-300) U/L POC Troponin I 0.00 L 0.00 L (0.01-0.04) ng/ml Pending negative 2nd troponin, all lab test look wonderful, I discussed in detail with him, these results. Imaging Data Chest x-ray: Attestation: I have reviewed the pertinent imaging results. My impression: Chest x-ray reviewed by myself is negative Radiologist's impression: [place] [address] Diagnostic Imaging Report Patient: Arnaldo Aguilar MR#: [id number] : 1985 Acct:[id number] Loc: ED Service Date: 12/30/[address]: Ordering Physician: Pierre Franklin M.D. Date of Service: 12/30/24 Procedure(s): XR chest 2V Accession Number(s): [id number] cc: Pierre Franklin M.D.; Sonam Luna M.D.~ For Patients: As a result of the Century Cures Act, medical imaging exams and procedure reports are released immediately into your electronic medical record. You may view this report before your referring provider. If you have questions, please contact your health care provider. Indication: Chest pain Technique: Chest 2 views Comparison: None Findings/Impression: Cardiovascular and mediastinum: Heart size and vasculature are normal in caliber and appearance. Mediastinum is within normal limits. Lungs and pleural spaces: Lungs are clear. No sign of infiltrate or mass. No sign of pleural effusion. No pneumothorax. Bones and soft tissues: No significant findings. Dictated by Montez Curtis MD @ 12/30/2024 3:53:19 PM (Electronically Signed) ECG Data Attestation: I personally reviewed and interpreted this ECG as follows: ECG interpretation date: 12/30/24 Prior ECG tracings: not available for review Interpretation: EKG shows normal sinus rhythm, with some left ventricular hypertrophy, early repolarization noted. No acute ST wave changes. QRS is normal QT QTC are normal. Second EKG done at 4:49 p.m. shows no acute changes, Discharge Plan Discharge Clinical Impression: Chest pain Patient Disposition: Home w/ Parent or Adult Condition: Improved Instructions: Chest Pain (DC), Noncardiac Chest Pain (ED), Chest Wall Pain (ED) Additional Instructions: Home rest follow-up with primary care for your physical tomorrow, return as needed, I do think this is a noncardiac cause of chest pain. Discharge Diet: Regular Prescriptions: No Action levetiracetam 750 mg tablet 750 mg PO BID Follow Up/Referrals: Sonam Luna MD [Primary Care Provider, Family Practice] Stand Alone Forms: [facility] Info Instructions Procedures Ultrasound Cardiac exam #1: Anatomical areas examined: subxiphoid, parasternal long, parasternal short and apical 4 chamber Indications: chest pain Exam type: limited transthoracic echocardiogram Impression: negative exam and other (Point of care ultrasound exam is done , for the indication of chest pain, no evidence of any significant abnormalities seen.)
[2024-12-30] MEDS: 0.9 % SODIUM CHLORIDE 1000 ml 1,000 ML IV (15:28)
[2024-12-30 15:32] LABS: Basophils Absolute Auto 0.04 K/uL (0.00-0.30); Basophils Percent Auto 0.5 % (0.0-3.0); Eosinophils Absolute Auto 0.31 K/uL (0.00-0.50); Eosinophils Percent Auto 3.7 % (0.0-7.0); Hematocrit* 43.4 % (37.0-53.0); Hemoglobin* 14.8 gm/dL (13.5-17.5); Immature Granulocytes Abs Auto 0.01 K/uL (0.00-0.30); Immature Granulocytes Pct Auto 0.1 %; Lymphocytes Percent Auto 38.2 % (20-44); Mean Corpuscular HGB Conc 34 gm/dL (32-36); Mean Corpuscular Hemoglobin 30 pg (26-34); Mean Corpuscular Volume 87 fL (80-100); Neutrophils Absolute Auto 4.32 K/uL (1.7-7.0); Neutrophils Percent Auto 51.5 % (42.0-72.0); Platelet Count* 275 K/uL (140-440); Red Blood Count* 5.02 m/uL (4.30-5.90); White Blood Count* 8.38 K/uL (4.50-11.00)
[2024-12-30 15:38] LABS: Slide Review Reflex No
[2024-12-30 15:41] LABS: Albumin* 4.8 g/dL (3.3-5.0)
[2024-12-30 15:42] LABS: Chloride* 104 mmol/L (96-114); Sodium* 138 mmol/L (135-149)
[2024-12-30 15:44] LABS: Alanine Aminotransferase* 26 U/L (4-50); Anion Gap 7 mEq/L (7-15); Aspartate Amino Transferase* 32 U/L (12-35); Blood Urea Nitrogen* 14 mg/dL (5-24); Carbon Dioxide* 27 mmol/L (20-32); Creatinine* 1.1 mg/dL (0.5-1.5); Est. Creatinine Clearance* 96.98; Estimated Glomerular Filt Rate 88 ml/min; INR 0.97 (0.91-1.10); Partial Thromboplastin Time* 26 Seconds (23-33); Prothrombin Time 13.6 Seconds
[2024-12-30 15:45] LABS: Alkaline Phosphatase* 54 U/L (40-150); Bilirubin Direct* 0.2 mg/dL (0.0-0.5); Bilirubin Total* 0.5 mg/dL (0.1-1.5); Calcium* 9.4 mg/dL (8.4-10.6); Glucose* 100 mg/dL (60-115); Lipase* 179 U/L (23-300); Total Protein* 7.5 g/dL (6.0-8.3)
[2024-12-30 15:55] LABS: NT Pro B Type NatriureticPept* < 20 pg/mL (See Note)
--- OUTSIDE RECORDS SUMMARY | 2024-12-30 16:01 | XMS_ITS | Clinical Summary ---
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 Allergies, Adverse Reactions, Alerts No information available. Results Date Name Value Unit Range Flag Description Internal Other: Verbal Autho rization/Emergency Contact VERBAL_EMER Done Verbal au thorization and emergency contact Internal Other: Authorizatio n AUTHBENEFIT Yes Authoriza tion: Assignment of Benefits and Payment Agreement [email or web address] Yes Authorizat ion: Authorization for [facility] to leave messages, voicemail, send text messages, send emails AUTHRELHCARE Yes Authoriz ation: Release/Retrieval of Information to/from Healthcare Facilities, Pharmacy Benefit Payers and Providers ROIAUTHOTHER Yes Authoriz ation: Release of Information - Authorize Others/Insurance - Payment and Healthcare Operations [email or web address] Yes Authoriza tion: Release of Information - Authorize [facility] - Payment and Healthcare Operations AUTHPRIVPRAC Yes Authoriz ation: Notice of privacy practices HIECONSENT Yes Consent To Release information to the Health Information Exchange (HIE) Plan of Care Type Date Detail Appointment 09:30 AM Mary Ellen hilll DNP,[employer], [address], [address], [place], [address], Pending order CBC with Diff/Pl atelet Pending order Levetiracetam (K eppra) Pending order Follow up with N eurologist or GILL Pending order MRI-Brain Seizur e Protocol W/WO Pending order Follow up with N eurologist or GILL Pending order Follow up with N eurologist or GILL Pending order CBC with Diff/Pl atelet Pending order Comp Metabolic P bernadine (14) Pending order Levetiracetam (K eppra) Pending order CBC with Diff/Pl atelet Pending order Comp Metabolic P bernadine (14) Pending order Levetiracetam (K eppra) Procedures No information available. Vital Signs No information available. Immunizations No information available. Advance Directives No information available.
--- OUTSIDE RECORDS SUMMARY | 2024-12-30 16:02 | XMS_ITS | Data Portability ---
Author Organization [facility], [facility] Address [address] [place] [address] Assessment No assessment recorded. Plan of Treatment [...] Name and Address Organization Details Recorded Time [id number] Ceclor medicatio n Not available Not available Not available 08/01/2022 5 RxNorm Jordyn hernandez [facility] 3 10:28:54 Medications Name Sig Start [...] Updated DateTime 08/01/2022 180.34 cm 26.4 kg/m2 73486.96 g Jordyn Doll [facility] 08/01/2022 10:28:08 Social History Question Answer Notes LastModified by Organizat ion Details LastModified Time Tobacco Smoking Status Never Smoker Jordyn hernandez [facility] 08/01/2022 10:30:19 What Was The Date [...] SNOMED-CT Code Diagnosis ICD10 Code Diagnosis Note [id number] Jesus Connell MD [facility] [address] [place] [phone] 08/01/2022 10:21:20 08/05/2022 15:56:18 Counseling for sterilization done [id number] Z30.09 He has a normal exam [...] Name 10/14/2022 1 [place] [id number] Arnaldo Hawthorne Jeff [id number] Arnaldo Aguilar Notes Date Note Type Note Provider Name and Address Organization Details Recorded Time 08/01/2022 text/html He's been considering a vasectomy for over a year. They currently use condoms for control. He does not have problems with recurrent scrotal pain. Jesus Connell MD [address] [place] [address],[address] [place] [address], [phone], [facility] 08/01/2022 11:02:23
== END 2024-12-30 17:36 | disposition home or self-care (01) ==
PROVIDERS: Emergency Provider Family Medicine; PCP Family Medicine
DX: R07.9 Chest pain, unspecified (principal)
CPT/HCPCS: 36415; 71046; 80048; 80076; 83690; 83880; 84484; 85025; 85379; 85610; 85730; 93005; 93308; 94761; 99284; 99285; J7030

== ENCOUNTER 2025-02-08 09:16 | Outpatient (RCR) | payer BC, SELFPAY | END 2025-06-08 23:59 | disposition home or self-care (01) | PROVIDERS: PCP Family Medicine; Visit Provider Family Medicine | DX: M25.512 Pain in left shoulder (principal); M25.511 Pain in right shoulder; G89.29 Other chronic pain; R20.0 Anesthesia of skin; M62.81 Muscle weakness (generalized); M54.2 Cervicalgia; R29.3 Abnormal posture; Z51.89 Encounter for other specified aftercare | CPT/HCPCS: 97110; 97161 ==